=== PATIENT | male | born 1945 | race Caucasian/White ===

== ENCOUNTER 2018-06-22 19:38 | Emergency (ER) | payer MEDICARE, BC ==
--- NOTE | 2018-06-22 21:21 | EDM.PDOC ---
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 they report that immediately [employer] the patient had a difficult time walking and was unable to eat his supper due to excessive shaking. they report that this is not his baseline. they report the symptoms lasted a brief (2-3 minutes) period and then resolved. they deny trauma, illness , other concerns. Onset: Today, Sudden Duration: Minutes: Location: Reports: Generalized Quality: Reports: Other (shaking) Severity: Moderate Associated Symptoms: Reports: No Other Symptoms - Related Data Allergies Allergy/AdvReac Type Severity Reaction Status Date / Time No Known Allergies Allergy Verified 06/22/18 19:43 Home Meds: Home Meds Aspirin [Lo-Dose Aspirin EC] 81 mg PO BEDTIME 06/22/18 [History] Azelastine HCl 137 mcg NS BID 06/22/18 [History] Donepezil HCl [Aricept] 10 mg PO DAILY 06/22/18 [History] Ipratropium [Atrovent 0.06% Nasal [place]] 15 ml .XX BID 06/22/18 [History] Memantine HCl [Namenda] 10 mg PO BID 06/22/18 [History] Propranolol [Inderal] 20 mg PO BID 06/22/18 [History] Sertraline HCl [Zoloft] 25 mg PO BEDTIME 06/22/18 [History] Past Medical History HEENT History: Reports: Other (See Below) Other HEENT History: hard of hearing Cardiovascular History: Reports: Hypertension, Pacemaker Neurological History: Reports: Parkinson's, Other (See Below) Other Neuro History: lewy-body dementia Psychiatric History: Reports: Depression Oncologic (Cancer) History: Reports: Basal Cell Carcinoma, Malignant Melanoma - Past Surgical History Cardiovascular Surgical History: Reports: Coronary Artery Bypass, Other (See Below) Other Cardiovascular Surgeries/Procedures: pacemaker Social & Family History - Tobacco Use Smoking Status *Q: Never Smoker ED ROS GENERAL - Review of Systems Review Of Systems: See Below Constitutional: Denies: Fever, Chills, Malaise, Weakness HEENT: Reports: Ear Discharge, Other (RIGHT ear) Respiratory: Denies: Shortness of Breath, Wheezing, Cough Cardiovascular: Denies: Chest Pain, Syncope GI/Abdominal: Denies: Abdominal Pain, Diarrhea, Nausea, Vomiting : Denies: Dysuria Musculoskeletal: Denies: Neck Pain Neurological: Reports: Difficulty Walking, Other (full body shaking) Psychiatric: Reports: No Symptoms ED EXAM, GENERAL - Physical Exam Exam: See Below Exam Limited By: Other (cognative impairment) Eye Exam: Bilateral Eye: EOMI, PERRL Ears: Other (purulence in the RIGHT EAC. tympanic membrane intact and free of drainage or erythema. LEFT ear exam without findings.) Nose: Normal Inspection Throat/Mouth: Normal Inspection, Normal Oropharynx Head: Atraumatic, Normocephalic. No: Sinus Tenderness Neck: Normal Inspection, Supple, Non-Tender, Full Range of Motion. No: Lymphadenopathy (L), Lymphadenopathy (R) Respiratory/Chest: No Respiratory Distress, Lungs Clear, No Accessory Muscle Use Cardiovascular: Normal Peripheral Pulses, Regular Rate, Rhythm Peripheral Pulses: 2+: Radial (L), Radial (R) GI/Abdominal: Soft, Non-Tender Extremities: Normal Inspection, Normal Range of Motion Neurological: Alert, CN II-XII Intact, Normal Gait, Confused, Other (patient is oriented to self only. per family this is his normal baseline.). No: Sensory/ Motor Deficit Psychiatric: Normal Affect Skin Exam: Warm, Dry, Intact Lymphatic: No Adenopathy Course - Vital Signs Last Recorded V/S: Last Vital Signs Temp 35.9 C 06/22/18 19:40 Pulse 60 06/22/18 19:40 Resp 16 06/22/18 19:40 BP 166/80 H 06/22/18 19:40 Pulse Ox 97 06/22/18 19:40 - Orders/Labs/Meds Orders: Active Orders 24 hr Category Date Time Status CXR [Chest 2V] [CR] Stat Exams 06/22/18 20:15 Taken Head wo Cont [CT] Stat Exams 06/22/18 20:14 Taken UA W/MICROSCOPIC [URIN] Stat Lab 06/22/18 20:25 Ordered Labs: Laboratory Tests 06/22/18 06/22/18 06/22/18 Range/Units 20:25 20:25 20:25 WBC 10.1 H (5.0-10.0) 10^3/uL RBC 4.65 (4.50-6.00) 10^6/uL Hgb 13.7 L (14.0-18.0) g/dL Hct 42.0 (40.0-54.0) % MCV 90.3 (82.0-94.0) fL MCH 29.5 (27.0-32.0) pg MCHC 32.6 L (33.0-38.0) g/dL RDW Coeff of Tamela 12.4 (11.0-15.0) % Plt Count 203 (150-400) 10^3/uL Neut % (Auto) 69.3 (35-85) % Lymph % (Auto) 19.1 (10-55) % [place] % (Auto) 8.5 (0-16) % Eos % (Auto) 2.5 (0-5) % Baso % (Auto) 0.6 (0-3) % Neut # (Auto) 7.02 H (1.80-7.00) 10^3/uL Lymph # (Auto) 1.93 (1.00-4.80) 10^3/uL [place] # (Auto) 0.86 H (0.00-0.80) 10^3/uL Eos # (Auto) 0.25 (0.00-0.45) 10^3/uL Baso # (Auto) 0.06 10^3/uL Sodium 141 (136-145) mEq/L Potassium 4.1 (3.5-5.0) mEq/L Chloride 104 (98-106) mEq/L Carbon Dioxide 28 (21-32) mmol/L BUN 21 H (7-18) mg/dL Creatinine 1.2 (0.7-1.3) mg/dL Est Cr Clr Drug Dosing 50.21 mL/min Estimated GFR (MDRD) 60 (>=60) mL/min Glucose 111 H (75-99) mg/dL Calcium 9.1 (8.4-10.1) mg/dL Urine Color Yellow (YELLOW) Urine Appearance Clear (CLEAR) Urine pH 5.5 (4.5-8.0) Ur Specific [place] 1.025 H (1.003-1.020) Urine Protein Negative (NEGATIVE) mg/dL Urine Glucose (UA) Negative (NEGATIVE) mg/dL Urine Ketones Negative (NEGATIVE) mg/dL Urine Occult Blood Negative (NEGATIVE) Urine Nitrite Negative (NEGATIVE) Urine Bilirubin Negative (NEGATIVE) Urine Urobilinogen 0.2 (0.2-1.0) EU/dL Ur Leukocyte Esterase Negative (NEGATIVE) Urine RBC Not seen (0-5) /HPF Urine WBC Not seen (0-5) /HPF Departure - Departure Time of Disposition: 21:22 Disposition: Home, Self-Care 01 Condition: Good Clinical Impression: Otitis externa, Episode of shaking - Discharge Information *PRESCRIPTION DRUG MONITORING PROGRAM REVIEWED*: Not Applicable *COPY OF PRESCRIPTION DRUG MONITORING REPORT IN PATIENT [place]: Not Applicable Instructions: Ear Drops, Adult, Tremor, Otitis Externa Referrals: Provider,Unknown [Primary Care Provider] - - My Orders Last 24 Hours: My Active Orders 06/22/18 20:14 Head wo Cont [CT] Stat 06/22/18 20:15 CXR [Chest 2V] [CR] Stat 06/22/18 20:25 UA W/MICROSCOPIC [URIN] Stat - Assessment/Plan Last 24 Hours: My Active Orders 06/22/18 20:14 Head wo Cont [CT] Stat 06/22/18 20:15 CXR [Chest 2V] [CR] Stat 06/22/18 20:25 UA W/MICROSCOPIC [URIN] Stat Assessment:: Otitis externa Rx for otic ciprodex Shaking Unclear etiology. Cranial nerve exam is without findings. Labs grossly WNL without evidence of infection, anemia, or electrolyte derangement. CT of the head shows no acute / emergent pathology. Advised patient and family at bedside to rest, take all Rx as directed, fu with PCP in 3-5 days, go to closest ER if change or worse. Patient and family report understanding and agreement with plan. DC home stable in care of family.
== END 2018-06-22 21:25 | disposition home or self-care (01) ==
LOC: CC.ED 19:38
DX: H60.91 Unspecified otitis externa, right ear (principal); G20 Parkinson's disease; F02.80 Dementia in other diseases classified elsewhere, unspecified severity, without behavioral disturbance, psychotic disturbance, mood disturbance, and anxiety; I10 Essential (primary) hypertension; Z95.0 Presence of cardiac pacemaker; Z95.1 Presence of aortocoronary bypass graft; Z79.82 Long term (current) use of aspirin; Z79.899 Other long term (current) drug therapy
CPT/HCPCS: 36415; 70450; 71046; 80048; 81001; 85025; 99283; 99284